=== PATIENT | male | born 1955 ===

== ENCOUNTER 2017-05-30 09:14 | Inpatient (IN) | payer MEDICAID ==
[2017-05-30 10:46] LABS: BASO % 0.5 % (0.0-2.0); EOS # 0.3 K/uL (0.0-0.7); EOS % 3.3 % (0.0-4.0); HEMOGLOBIN 15.1 g/dL (12.0-18.0); LYMPH # 1.7 K/uL (1.0-4.3); LYMPH % 21.3 % (20.0-40.0); MEAN CELL VOLUME 90.1 fL (80.0-94.0); MEAN CORPUSCULAR HEMOGLOBIN 31.9 pg (27.0-31.0); MEAN CORPUSCULAR HGB CONC 35.4 g/dL (33.0-37.0); MEAN PLATELET VOLUME 8.6 fL (7.2-11.7); MONO # 0.6 K/uL (0.0-0.8); MONO % 7.4 % (0.0-10.0); NEUT # 5.4 K/uL (1.8-7.0); NEUT % 67.5 % (50.0-75.0); RBC 4.73 Mil/uL (4.40-5.90); RED CELL DISTRIBUTION WIDTH 13.2 % (11.5-14.5); WHITE BLOOD COUNT 8.1 K/uL (4.8-10.8)
[2017-05-30 11:04] LABS: ALB/GLOB RATIO 1.3 (1.0-2.1); ALBUMIN 4.3 g/dL (3.5-5.0); ALT/SGPT 45 U/L (21-72); AST/SGOT 28 U/L (17-59); BLOOD UREA NITROGEN 9 mg/dL (9-20); CALCIUM 9.8 mg/dl (8.6-10.4); GFR AFRICAN-AMERICAN > 60; GFR NON-AFRICAN AMERICAN > 60
[2017-05-30 11:07] LABS: URINE BILIRUBIN NEGATIVE (NEGATIVE); URINE BLOOD NEGATIVE (NEGATIVE); URINE CLARITY Clear (Clear); URINE COLOR Yellow (YELLOW); URINE GLUCOSE (UA) NORMAL (Normal); URINE LEUKOCYTE ESTERASE NEG Leu/uL (Negative); URINE NITRATE NEGATIVE (NEGATIVE); URINE PROTEIN NEGATIVE (NEGATIVE); URINE UROBILINOGEN NORMAL mg/dL (0.2-1.0)
[2017-05-30 11:08] LABS: BARBITURATES, UR NEGATIVE (NEGATIVE); BENZODIAZEPINES, UR NEGATIVE (NEGATIVE); OPIATES, UR NEGATIVE (NEGATIVE); PHENCYCLIDINE, UR NEGATIVE (NEGATIVE)
--- NOTE | 2017-05-30 12:01 | C.PDOC ---
History Of Present Illness 61 year old male, with PMHx of depression, schizophrenia, presents to ED for evaluation of feeling more depressed for the last 4 days. He denies SI or HI. Pt reports being seen by a counselor as an outpatient, is currrently taking Pristiq which he is compliant with. Pt also complaints of body aches, specifically in the chest and the back. He has tried ibuprofen without relief. Patient denies cough, fever, SOB, abdominal pain, nausea/vomiting/diarrhea. Time Seen by Provider: 05/30/17 09:19 Chief Complaint (Nursing): Psychiatric Evaluation History Per: Patient History/Exam Limitations: no limitations Onset/Duration Of Symptoms: Days Current Symptoms Are (Timing): Still Present Severity: Moderate Associated Symptoms: Depression. denies: Suicidal Thoughts, Suicidal Plan Involuntary Hold By: None Additional History Per: Patient Past Medical History Reviewed: Historical Data, Nursing Documentation, Vital Signs Vital Signs: Last Vital Signs Temp 97 F L 06/05/17 05:45 Pulse 73 06/05/17 05:45 Resp 16 06/05/17 05:45 BP 131/90 06/05/17 09:00 Pulse Ox 99 06/05/17 05:45 - Medical History PMH: Back Problems ("chronic back pain"), Depression, HTN, Schizophrenia - [facility] Procedures OTHER GROUP THERAPY (09/03/13) Family History: States: No Known Family Hx - Social History Hx Tobacco Use: No Hx Alcohol Use: No Hx Substance Use: No - Immunization History Hx Tetanus Toxoid Vaccination: (unknown) Hx Influenza Vaccination: Yes Hx Pneumococcal Vaccination: (unknown) Review Of Systems Except As Marked, All Systems Reviewed And Found Negative. Constitutional: Positive for: Other (body aches). Negative for: Fever, Chills Cardiovascular: Positive for: Chest Pain. Negative for: Palpitations, Light Headedness Respiratory: Negative for: Cough, Shortness of Breath Gastrointestinal: Negative for: Nausea, Vomiting, Abdominal Pain, Diarrhea Genitourinary: Negative for: Dysuria, Frequency, Hematuria Musculoskeletal: Positive for: Back Pain Skin: Negative for: Rash Neurological: Negative for: Headache, Dizziness Psych: Positive for: Depression. Negative for: Suicidal ideation Physical Exam - Physical Exam Appears: Well, Non-toxic, No Acute Distress, Other (flat affect) Skin: Normal Color, Warm, Dry Head: Normacephalic Eye(s): bilateral: Normal Inspection Oral Mucosa: Moist Chest: Symmetrical, No Tenderness Cardiovascular: Rhythm Regular Respiratory: Normal Breath Sounds, No Rales, No Rhonchi, No Wheezing Gastrointestinal/Abdominal: Normal Exam, Bowel Sounds, Soft, No Tenderness Back: Normal Inspection, No CVA Tenderness, No Vertebral Tenderness, No Paraspinal Tenderness Extremity: Normal ROM Neurological/Psych: Oriented x3 ED Course And Treatment - Laboratory Results Result Diagrams: 05/30/17 10:38 05/30/17 10:38 ECG: Interpreted By Me, Viewed By Me (NSR 73 bpm, normal axis, no acute ST/T wave changes) ECG Interpretation: Normal O2 Sat by Pulse Oximetry: 98 (RA) Pulse Ox Interpretation: Normal Progress Note: Blood work, UA, UDS, EKG ordered and reviewed. Pt was given PO Tylenol. 12:30 - Patient medically cleared. Accepted by Dr. Alcala for psychiatric admission. Disposition - Disposition Disposition: HOSPITALIZED Disposition Time: 12:31 Condition: STABLE - Clinical Impression Clinical Impression: Schizophrenia - Scribe Statement The provider has reviewed the documentation as recorded by the Scribsona Tejeda All medical record entries made by the Scribe were at my direction and personally dictated by me. I have reviewed the chart and agree that the record accurately reflects my personal performance of the history, physical exam, medical decision making, and the department course for this patient. I have also personally directed, reviewed, and agree with the discharge instructions and disposition. Decision To Admit - Pt Status Changed To: Hospital Disposition Of: Inpatient - Admit Certification Admit to Inpatient:: After my assessment, the patient will require hospitalization for at least two midnights. This is because of the severity of symptoms shown, intensity of services needed, and/or the medical risk in this patient being treated as an outpatient. - InPatient: Physician Admission Certification: I certify that this patient requires 2 or more midnights of care for the following reason:: see notes - . Bed Request Type: Psychiatry Admitting Physician: Raul Alcala Patient Diagnosis: Schizophrenia
--- NOTE | 2017-05-30 13:56 | PCM.BM ---
<KaelTamikozachary Oscar - Last Filed: 05/30/17 13:53> Treatment Plan Problems - Problems identified on initial assessmt Depression Date Initiated: 05/30/17 Time Initiated: 13:53 Assessment reference: NA Status: Active (s) Schizophrenia Date Initiated: 05/30/17 Time Initiated: 13:55 Assessment reference: NA Status: Active Treatment assets and liabiliti Patient Assests: ADL independent, physically healthy, negotiates basic needs, cognitively intact Patient Liabilities: live alone - Milieu Protocol Maintain good personal hygiene: daily Encourage regular showers, daily Remind patient to perform daily oral care, daily Assist patient to perform ADL's Maintain personal safety: every shift Educate patient to report safety concerns to staff, every shift Monitor environment for contraband/sharps Medication safety: Monitor for expected outcome, potential side effects: every shift, Assess barriers to learning: every shift, Assess readiness for medication education: every shift <Raul Alcala - Last Filed: 05/31/17 11:01> - Diagnosis (1) Schizophrenia Status: Acute Interventions: 05/31/17 11:01 * Assess/adjust medications daily and /or as needed * See patient on an individual basis 7x/week to assess status of hallucinations * Discuss risks, benefits, side effects and alternatives of medications * <Milagro Horn - Last Filed: 05/31/17 11:07> Family Contact Family involvement: Famliy/SO not involved - Goals for Treatment Patient goals for treatment: "I need help." Discharge/Continuing Care - Education Needs Education Needs: Patient Medication, Patient Coping Skills - Discharge Discharge Criteria: Tolerates medication w/o severe side effects, Reduction of target symptoms Discharge to:: Home - Treatment Team Participation Discussed with Family/SO: No Was Patient/Family/SO present at Treatment Team Meeting: Yes
[2017-05-30] MEDS ORDERED: Magnesium Hydroxide Susp 30 ml UD PO ONE (19:23)
[2017-05-31] MEDS ORDERED: Patient's Own Medication - Tablet/Capusle PO SCH (10:00)
--- NOTE | 2017-05-31 10:24 | PCM.PSYCH ---
Initial Psychiatric Evaluation - Initial Psychiatric Evaluation Type of Admission: Voluntary Legal Status: Capacity Chief Complaint (in patient's own words): My landlord was plotting against me. ' History of Present Illness and Precipitating Events: Pt is a 61 year old [place] male, with a history of schizophrenia, who was brought to the ER by EMS due to depression and verbal altercation with his landlord. Patient has an extensive history of inpatient psychiatric hospitalizations. He was at [facility] 3 years ago with the dx of Schizophrenia. Patient is currently following up with the OP program at [facility]. Pt was a poor historian. He remained disorganized and internally preoccupied throughout the interview. He remained superficially cooperative and guarded about the details. Pt states that his landlady bothers her at the beginning of every month for his rent. Pt states that she will request rent multiple times a day. Pt reports that she recently called the police on him because he didn't have his rent money. Pt presents with rapid, tangential speech, thoughts were disorganized. Pt admits to auditory hallucinations, stating "the ringing" in his ears never stops. Pt reports poor sleep and poor appetite. He appeared delusional, paranoid and suspicious. He reports irritable and agitated mood. He appears disheveled and unkempt. He reports past history of AVH and paranoid delusional that police was following him. He also reports partial compliance with the medications. PMH: HTN Current Medications: Active Medications Generic Name Dose Route Start Last Admin Trade Name Freq PRN Reason Stop Dose Admin Home Med 1 tab 05/31/17 10:00 Patient's Own Medication PO DAILY CHERELLE Hydroxyzine HCl 25 mg 05/30/17 14:16 Atarax PO Q6 PRN Agitation Ibuprofen 600 mg 05/30/17 19:23 05/31/17 10:11 Motrin Tab PO 600 mg Q6 PRN Administration Pain, moderate (4-7) Lisinopril 20 mg 05/31/17 10:00 05/31/17 10:13 Zestril PO 20 mg DAILY CHERELLE Administration Pneumococcal Polyvalent Vaccine 0.5 ml 06/02/17 10:00 Pneumovax 23 Vaccine IM 06/02/17 10:01 .ONCE ONE Trazodone HCl 50 mg 05/30/17 22:00 Desyrel PO HS PRN Insomnia Past Psychiatric History - Past Psychiatric History Previous Treatment History: Inpatient Pertinent Medical Hx (Current Medical&Sleep Prob, Allergies): Allergies Allergy/AdvReac Type Severity Reaction Status Date / Time No Known Allergies Allergy Verified 05/30/17 09:36 Desvenlafaxine Succinate [Pristiq] 50 mg PO DAILY 05/30/17 Lisinopril [Zestril] 20 mg PO DAILY 05/30/17 Review of Systems - Review of Systems All systems: reviewed and no additional remarkable complaints except - Psychiatric Psychiatric: Anxiety, Auditory Hallucinations, Hopelessness, Irritability Mental Status Examination - Personal Presentation Personal Presentation: Looks stated age - Affect Affect: Broad - Motor Activity Motor Activity: Psychomotor Agitation - Reliability in Providing Information Reliability in Providing Information: Poor, due to alteration in thoughts, Poor , due to altered mood - Speech Speech: Disorganized - Mood Mood: Depressed, Anxious - Formal Thought Process Formal Thought Process: Hallucinations, Delusions, Paranoia, Loosening of associations, Circumstantial - Hallucinations/Delusions Hallucinations: Auditory Delusions: Persecution - Obsessions/Compulsions Obsessions: No Compulsions: No - Cognitive Functions Orientation: Person, Place, Situation, Time Sensorium: Alert Attention/Concentration: Attentive Abstract Thinking: [place] Estimate of Intelligence: Below average Judgement: Imparied, as evidence by: Poor judgement, Imparied, as evidence by: Lack of insight into illness - Risk Risk: Diminished functioning - Limitations Limitations: Living alone DSM 5 DX - DSM 5 DSM 5 Diagnosis: SCPT continuous R/O Schizoaffective disorder bipolar type - Recommended/Plan of Treatment Treatment Recommendations and Plan of Treatment: SCPT continuous R/O Schizoaffective disorder bipolar type CBT Psychoeducation Supportive therapy, group therapy, individual therapy Prolixin 5 mg PO BID Cogentin 1 mg PO BID Neurontin 100 mg by mouth 3 times a day Trazodone 50 mg by mouth daily at bedtime Mirtazapine 15 mg O QHS HTN Continue prescribed meds - Smoking Cessation Smoking Cessation Initiated: No
[2017-05-31] MEDS: Patient's Own Medication - Tablet/Capusle PO SCH (10:35)
--- NOTE | 2017-05-31 16:41 | CARD ---
APPROVED REPORT EKG Measurement Heart [id number] <Conclusion> Normal sinus rhythm Normal ECG
[2017-06-01] MEDS: Patient's Own Medication - Tablet/Capusle PO SCH (09:38)
--- NOTE | 2017-06-01 10:47 | PCM.PYCHPN ---
Psychiatric Progress Note - Psychiatric Progress Note Patient seen today, length of contact: 15 min Patient Chief Complaint: My landlord was plotting against me. ' Problems Identified/Issues Discussed: Patient seen and evaluated, chart reviewed and discussed with the nurse. Patient remained disorganized and internally preoccupied. He still reports of hearing voices. Patient still appears paranoid and delusional. He reports some improvement in his irritability and agitation. Patient remained isolated, confined and withdrawn. Patient is compliant with medications and denies any side effects. Symptoms are improving but need more time to stabilize. Support and psychoeducation given. Medication Change: No Medical Record Reviewed: Yes Mental Status Examination - Cognitive Function Orientation: Person, Place, Situation, Time Memory: Intact Attention: Poor Concentration: Poor Association: Loose Fund of Knowledge: Poor - Mood Mood: Depressed, Anxious - Affect Affect: Broad - Speech Speech: Soft - Formal Thought Process Formal Thought Process: Hallucinations, Delusions, Paranoia, Loosening of associations, Circumstantial - Suicidal Ideation Suicidal Ideation: No - Homicidal Ideation Homicidal Ideation: No Goal/Treatment Plan - Goal/Treatment Plan Need for Continued Stay: Severe depression anxiety, Severe functional impairment Progress Toward Problem(s) and Goals/Treatment Plan: SCPT continuous R/O Schizoaffective disorder bipolar type CBT Psychoeducation Supportive therapy, group therapy, individual therapy Prolixin 5 mg PO BID Cogentin 1 mg PO BID Neurontin 100 mg by mouth 3 times a day Trazodone 50 mg by mouth daily at bedtime Mirtazapine 15 mg O QHS HTN Continue prescribed meds - Smoking Cessation Smoking Cessation Initiated: No
[2017-06-02] MEDS: Patient's Own Medication - Tablet/Capusle PO SCH (09:59)
[2017-06-02] MEDS ORDERED: Pneumococcal 23-Valent Vaccine IM ONE (10:00)
--- NOTE | 2017-06-02 10:25 | PCM.PYCHPN ---
Psychiatric Progress Note - Psychiatric Progress Note Patient seen today, length of contact: 15 min Patient Chief Complaint: I am feeling a little better. ' Problems Identified/Issues Discussed: Patient seen and evaluated, chart reviewed and discussed with the nurse. as per the staff, patient appears more organized and less internally preoccupied. He still reports of hearing sounds but less in intensity. He appears less paranoid and and less delusional than before. Patient remained isolated, confined and withdrawn. Patient is compliant with medications and denies any side effects. Symptoms are improving but need more time to stabilize. Support and psychoeducation given. Medication Change: Yes (increase fluphenazine, increase Remeron) Medical Record Reviewed: Yes Mental Status Examination - Cognitive Function Orientation: Person, Place, Situation, Time Memory: Intact Attention: WNL Concentration: Poor Association: Loose Fund of Knowledge: WNL - Mood Mood: Depressed, Anxious - Affect Affect: Broad - Speech Speech: Soft - Formal Thought Process Formal Thought Process: Hallucinations, Delusions, Loosening of associations - Suicidal Ideation Suicidal Ideation: No - Homicidal Ideation Homicidal Ideation: No Goal/Treatment Plan - Goal/Treatment Plan Need for Continued Stay: Severe depression anxiety, Severe functional impairment Progress Toward Problem(s) and Goals/Treatment Plan: SCPT continuous R/O Schizoaffective disorder bipolar type CBT Psychoeducation Supportive therapy, group therapy, individual therapy Prolixin 5 mg PO daily Prolixin 10 mg PO HS Cogentin 1 mg PO BID Neurontin 100 mg by mouth 3 times a day Trazodone 50 mg by mouth daily at bedtime Mirtazapine 30 mg O QHS HTN Continue prescribed meds - Smoking Cessation Smoking Cessation Initiated: No
[2017-06-03] MEDS: Patient's Own Medication - Tablet/Capusle PO SCH (09:23)
--- NOTE | 2017-06-03 19:23 | PCM.PYCHPN ---
Psychiatric Progress Note - Psychiatric Progress Note Patient seen today, length of contact: 15 min Patient Chief Complaint: "I'm feeling better." Problems Identified/Issues Discussed: Patient was seen. Chart was reviewed important content noted. Nurse input received. No events overnight. Patient slept well and is eating well. Patient reported improvement in his psychosis. He reported decrease in auditory hallucinations. He denies any depressive symptoms. Denies suicidal or homicidal ideations. Patient does not report delusions. Patient has remained in good clinical and behavioral control. Symptoms are improving, but needs more time to stabilize. Patient is finding medications beneficial and would like to continue with treatment plan. Patient appreciated that treatment team is trying to help. Medication Change: Yes (increase fluphenazine, increase Remeron) Medical Record Reviewed: Yes Mental Status Examination - Cognitive Function Orientation: Person, Place, Situation, Time Memory: Intact Attention: WNL Concentration: Poor Association: Loose Fund of Knowledge: WNL - Mood Mood: Depressed, Anxious - Affect Affect: Constricted - Speech Speech: Soft - Formal Thought Process Formal Thought Process: Hallucinations, Loosening of associations Psychotic Thoughts and Behaviors: +ve AH Additional comments: He is calm and cooperative - Suicidal Ideation Suicidal Ideation: No - Homicidal Ideation Homicidal Ideation: No Goal/Treatment Plan - Goal/Treatment Plan Need for Continued Stay: Severe depression anxiety, Discharge may exacerbated symptoms, Severe functional impairment Progress Toward Problem(s) and Goals/Treatment Plan: Continue current treatment and management as per primary team. Therapy in milieu Estimated Date of D/C: 06/07/17
[2017-06-04] MEDS: Patient's Own Medication - Tablet/Capusle PO SCH (09:20)
--- NOTE | 2017-06-04 16:35 | PCM.PYCHPN ---
Psychiatric Progress Note - Psychiatric Progress Note Patient seen today, length of contact: 15 min Patient Chief Complaint: "I'm fine." Problems Identified/Issues Discussed: Patient was seen. Chart was reviewed important content noted. Nurse input received. No events overnight. Patient slept well and is eating well. Patient reported decrease in auditory hallucinations. He denies any depressive symptoms. Denies suicidal or homicidal ideations. Patient does not report delusions. Patient has remained in good clinical and behavioral control. Symptoms are improving, but needs more time to stabilize. Patient is finding medications beneficial and would like to continue with treatment plan. DSM 5 Symptoms Update: Schizophrenia Medication Change: Yes (increase fluphenazine, increase Remeron) Medical Record Reviewed: Yes Mental Status Examination - Cognitive Function Orientation: Person, Place, Situation, Time Memory: Intact Attention: WNL Concentration: Poor Association: Loose Fund of Knowledge: WNL Decription of patient's judgement and insights: good/good Calm and cooperative - Mood Mood: Anxious - Affect Affect: Constricted - Speech Speech: Soft - Formal Thought Process Formal Thought Process: Hallucinations, Loosening of associations Psychotic Thoughts and Behaviors: +ve AH - Suicidal Ideation Suicidal Ideation: No Plan: denied - Homicidal Ideation Homicidal Ideation: No Plan: denied Goal/Treatment Plan - Goal/Treatment Plan Need for Continued Stay: Severe depression anxiety, Discharge may exacerbated symptoms, Severe functional impairment Progress Toward Problem(s) and Goals/Treatment Plan: Continue current treatment and management as per primary team. Therapy in milieu Recommend to attend group and individual therapy. Estimated Date of D/C: 06/07/17 - Smoking Cessation Smoking Cessation Initiated: Yes
[2017-06-05] MEDS: Patient's Own Medication - Tablet/Capusle PO SCH (09:52)
--- NOTE | 2017-06-05 10:19 | PCM.PYCHPN ---
Psychiatric Progress Note - Psychiatric Progress Note Patient seen today, length of contact: 15 min Patient Chief Complaint: "I feel dizzy today" Problems Identified/Issues Discussed: The pt is seen, chart reviewed, case discussed with staff. The pt is compliant with medications and reports no side-effects. Symptoms improving and patient needs more time to stabilize. Patient is complaining of increased dizziness. He said yesterday and today he has felt very dizzy while walking. He also complains of general weakness. He said this has happened in the past and attributed it to medication changes. He denies hearing voices but say there is a low buzzing in the background. His mood is okay but admits he cannot focus and feels uneasy. After care discussed, support and psychoeducation given. Medication Change: Yes (d/c neurontin) Medical Record Reviewed: Yes Mental Status Examination - Cognitive Function Orientation: Person, Place, Situation, Time Memory: Intact Attention: WNL Concentration: Poor Association: WNL Fund of Knowledge: WNL - Mood Mood: Anxious - Affect Affect: Constricted - Speech Speech: Soft - Language Language: Word Retrieval - Suicidal Ideation Suicidal Ideation: No - Homicidal Ideation Homicidal Ideation: No Goal/Treatment Plan - Goal/Treatment Plan Need for Continued Stay: Severe depression anxiety, Discharge may exacerbated symptoms, Severe functional impairment Progress Toward Problem(s) and Goals/Treatment Plan: SCPT continuous R/O Schizoaffective disorder bipolar type CBT Psychoeducation Supportive therapy, group therapy, individual therapy Prolixin 5 mg PO daily Prolixin 10 mg PO HS Cogentin 1 mg PO BID d/c Neurontin 100 mg by mouth 3 times a day Trazodone 50 mg by mouth daily at bedtime Mirtazapine 30 mg O QHS HTN Continue prescribed meds Estimated Date of D/C: 06/07/17 - Smoking Cessation Smoking Cessation Initiated: No Reason for not providing: does not require
[2017-06-06] MEDS: Patient's Own Medication - Tablet/Capusle PO SCH (09:33)
--- NOTE | 2017-06-06 10:45 | PCM.PYCHPN ---
Psychiatric Progress Note - Psychiatric Progress Note Patient seen today, length of contact: 16 min Patient Chief Complaint: "Im feeling okay today" Problems Identified/Issues Discussed: The pt is seen, chart reviewed, case discussed with staff. The patient is still feeling dizzy. He is very tired and hasnt been sleeping well. He states he doesnt hear any voices and only slight buzzing. He says that he only notices the buzzing when asked if he hears voices. The pt is compliant with medications and reports no side-effects. Symptoms improving and patient needs more time to stabilize. After care discussed, support and psychoeducation given. After care discussed, support and psychoeducation given. Medication Change: Yes (reduce prolixin) Medical Record Reviewed: Yes Mental Status Examination - Cognitive Function Orientation: Person, Place, Situation, Time Memory: Intact Attention: WNL Concentration: Poor Association: WNL Fund of Knowledge: WNL - Mood Mood: Anxious - Affect Affect: Constricted - Speech Speech: Soft - Language Language: Word Retrieval - Formal Thought Process Formal Thought Process: Loosening of associations - Suicidal Ideation Suicidal Ideation: No - Homicidal Ideation Homicidal Ideation: No Goal/Treatment Plan - Goal/Treatment Plan Need for Continued Stay: Severe depression anxiety, Discharge may exacerbated symptoms, Severe functional impairment Progress Toward Problem(s) and Goals/Treatment Plan: SCPT continuous R/O Schizoaffective disorder bipolar type CBT Psychoeducation Supportive therapy, group therapy, individual therapy d/c Prolixin 5 mg PO daily Prolixin 10 mg PO HS Cogentin 1 mg PO BID Trazodone 50 mg by mouth daily at bedtime Mirtazapine 30 mg O QHS HTN Continue prescribed meds Estimated Date of D/C: 06/07/17
[2017-06-07 05:53] VITALS: O2SAT 95
[2017-06-07] MEDS: Patient's Own Medication - Tablet/Capusle PO SCH (09:41)
--- NOTE | 2017-06-07 10:11 | PCM.BM ---
<Milagro Horn - Last Filed: 06/07/17 10:11> Treatment Plan Problems - Problems identified on initial assessmt Depression Date Initiated: 05/30/17 Time Initiated: 13:53 Assessment reference: NA Status: Active (s) Schizophrenia Date Initiated: 05/30/17 Time Initiated: 13:55 Assessment reference: NA Status: Active Treatment assets and liabiliti Patient Assests: ADL independent, physically healthy, negotiates basic needs, cognitively intact Patient Liabilities: live alone - Milieu Protocol Maintain good personal hygiene: daily Encourage regular showers, daily Remind patient to perform daily oral care, daily Assist patient to perform ADL's Maintain personal safety: every shift Educate patient to report safety concerns to staff, every shift Monitor environment for contraband/sharps Medication safety: Monitor for expected outcome, potential side effects: every shift, Assess barriers to learning: every shift, Assess readiness for medication education: every shift Milieu Narrative: SCPT continuous R/O Schizoaffective disorder bipolar type CBT Psychoeducation Supportive therapy, group therapy, individual therapy d/c Prolixin 5 mg PO daily Prolixin 10 mg PO HS Cogentin 1 mg PO BID Trazodone 50 mg by mouth daily at bedtime Mirtazapine 30 mg O QHS HTN Continue prescribed meds Family Contact Family involvement: Famliy/SO not involved - Goals for Treatment Patient goals for treatment: "I need help." Discharge/Continuing Care - Education Needs Education Needs: Patient Medication, Patient Coping Skills - Discharge Discharge Criteria: Tolerates medication w/o severe side effects, Reduction of target symptoms Discharge to:: Home - Treatment Team Participation Patient/Family/SO Statement: SCPT continuous R/O Schizoaffective disorder bipolar type CBT Psychoeducation Supportive therapy, group therapy, individual therapy d/c Prolixin 5 mg PO daily Prolixin 10 mg PO HS Cogentin 1 mg PO BID Trazodone 50 mg by mouth daily at bedtime Mirtazapine 30 mg O QHS HTN Continue prescribed meds Discussed with Family/SO: No Was Patient/Family/SO present at Treatment Team Meeting: Yes Treatment Plan Review - Problem Depression Time Initiated: 13:53 Schizophrenia Time Initiated: 13:55 - Discharge / Continuing Care Discharge to:: Home Behavioral Health Services: Outpatient therapy Health Needs: Medications/Rx <Raul Alcala - Last Filed: 06/07/17 11:05> - Diagnosis (1) Schizophrenia Status: Acute Interventions: 06/07/17 11:04 * Assess/adjust medications daily and /or as needed * See patient on an individual basis 7x/week to assess status of hallucinations * Discuss risks, benefits, side effects and alternatives of medications *
--- NOTE | 2017-06-07 14:03 | PCM.BM ---
<Milagro Horn - Last Filed: 06/07/17 14:13> Treatment Plan Problems - Problems identified on initial assessmt Depression Date Initiated: 05/30/17 Time Initiated: 13:53 Assessment reference: NA Status: Active (s) Schizophrenia Date Initiated: 05/30/17 Time Initiated: 13:55 Assessment reference: NA Status: Active Treatment assets and liabiliti Patient Assests: ADL independent, physically healthy, negotiates basic needs, cognitively intact Patient Liabilities: live alone - Milieu Protocol Maintain good personal hygiene: daily Encourage regular showers, daily Remind patient to perform daily oral care, daily Assist patient to perform ADL's Maintain personal safety: every shift Educate patient to report safety concerns to staff, every shift Monitor environment for contraband/sharps Medication safety: Monitor for expected outcome, potential side effects: every shift, Assess barriers to learning: every shift, Assess readiness for medication education: every shift Family Contact Family involvement: Famliy/SO not involved - Goals for Treatment Patient goals for treatment: "I need help." Discharge/Continuing Care - Education Needs Education Needs: Patient Medication, Patient Coping Skills - Discharge Discharge Criteria: Tolerates medication w/o severe side effects, Reduction of target symptoms Discharge to:: Home - Treatment Team Participation Discussed with Family/SO: No Was Patient/Family/SO present at Treatment Team Meeting: Yes Treatment Plan Review - Problem Depression Time Initiated: :53 Schizophrenia Time Initiated: 13:55 - Discharge / Continuing Care Discharge to:: Home Behavioral Health Services: Outpatient therapy Health Needs: Medications/Rx, Alcohol/Drug treatment <Winnie Gomez - Last Filed: 06/07/17 14:17> Treatment Plan Review - Problem Depression Date Initiated: 06/07/17 Time Initiated: 14:17 Progress toward outcomes: improved Schizophrenia Date Initiated: 06/07/17 Time Initiated: 14:17 Progress toward outcomes: improved
[2017-06-08] MEDS: Patient's Own Medication - Tablet/Capusle PO SCH (09:40)
--- NOTE | 2017-06-08 21:31 | PCM.PYCHPN ---
Psychiatric Progress Note - Psychiatric Progress Note Patient seen today, length of contact: 16 min Patient Chief Complaint: "Im feeling better" Problems Identified/Issues Discussed: The pt is seen, chart reviewed, case discussed with staff. Patient reports improvement in his mood and reports improvement in the paranoia. He denies any auditory or visual hallucinations. He remained calm and cooperative. He denies any feelings of hopelessness and helplessness. He still reports some dizziness from the medications and requesting to decrease the dose. Patient is compliant with medications and denies any side effects. Symptoms are improving but need more time to stabilize. Support and psychoeducation given. Medication Change: Yes (reduce prolixin) Medical Record Reviewed: Yes Mental Status Examination - Cognitive Function Orientation: Person, Place, Situation, Time Memory: Intact Attention: WNL Concentration: Poor Association: WNL Fund of Knowledge: WNL - Mood Mood: Anxious - Affect Affect: Constricted - Speech Speech: Soft - Language Language: Word Retrieval - Formal Thought Process Formal Thought Process: Loosening of associations - Suicidal Ideation Suicidal Ideation: No - Homicidal Ideation Homicidal Ideation: No Goal/Treatment Plan - Goal/Treatment Plan Need for Continued Stay: Severe depression anxiety, Discharge may exacerbated symptoms, Severe functional impairment Progress Toward Problem(s) and Goals/Treatment Plan: SCPT continuous R/O Schizoaffective disorder bipolar type CBT Psychoeducation Supportive therapy, group therapy, individual therapy d/c Prolixin 5 mg PO daily Prolixin 10 mg PO HS Cogentin 1 mg PO BID Trazodone 50 mg by mouth daily at bedtime Mirtazapine 30 mg O QHS HTN Continue prescribed meds Estimated Date of D/C: 06/07/17
[2017-06-09 06:31] VITALS: BP 109/70; PULSE 73; RESP 20; TEMP 97.5
[2017-06-09] MEDS: Patient's Own Medication - Tablet/Capusle PO SCH (09:54)
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
== END 2017-06-09 10:45 | disposition home or self-care (01) | DRG 430 ==
LOC: C.ER 09:14 → C.5E 12:31
PROVIDERS: ADMIT Psychiatry & Neurology Psychiatry; ATTEND Psychiatry & Neurology Psychiatry
PROC: GZ56ZZZ Individual Psychotherapy, Supportive (ICD-10-PCS; principal; 2017-05-30)
DX: F25.0 Schizoaffective disorder, bipolar type (principal); F22 Delusional disorders; I10 Essential (primary) hypertension

== ENCOUNTER 2018-06-11 19:48 | Emergency (ER) | payer MEDICAID ==
[2018-06-11 20:06] VITALS: BP 137/84; PULSE 75; RESP 18; TEMP 98.8; O2SAT 98
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
== END 2018-06-11 20:53 | disposition home or self-care (01) ==
LOC: C.ER 19:48
DX: J06.9 Acute upper respiratory infection, unspecified (principal)